=== PATIENT | female | born 1955 | race Two or more races ===

== ENCOUNTER 2021-12-06 13:58 | Outpatient (CLI) | payer OTHER | END 2021-12-06 14:10 | disposition home or self-care (01) | LOC: RAD 13:58 → MAMO-SONO 13:58 | PROVIDERS: ATTEND General Practice | DX: J80 Acute respiratory distress syndrome (principal); R07.9 Chest pain, unspecified; M54.50 Low back pain, unspecified; Z12.31 Encounter for screening mammogram for malignant neoplasm of breast; N64.59 Other signs and symptoms in breast ==

== ENCOUNTER → 2021-12-12 | Outpatient (CLI) | payer OTHER | END | disposition home or self-care (01) | LOC: NUCLEAR 12:13 | PROVIDERS: ATTEND General Practice | DX: M81.0 Age-related osteoporosis without current pathological fracture (principal); Z13.820 Encounter for screening for osteoporosis ==

== ENCOUNTER 2022-06-12 12:52 | Outpatient (CLI) | payer OTHER | END 2022-06-12 12:54 | disposition home or self-care (01) | LOC: SONOGRAMA 12:52 | PROVIDERS: ATTEND General Practice | DX: N64.59 Other signs and symptoms in breast (principal) ==

== ENCOUNTER 2023-02-12 10:30 | Outpatient (CLI) | payer OTHER | END 2023-02-12 10:35 | disposition home or self-care (01) | LOC: SONOGRAMA 10:30 | PROVIDERS: ATTEND General Practice | DX: E04.2 Nontoxic multinodular goiter (principal) ==

== ENCOUNTER 2024-02-06 07:54 | Outpatient (CLI) | payer OTHER | END 2024-02-06 08:07 | disposition home or self-care (01) | LOC: MAMO-SONO 07:54 | PROVIDERS: ATTEND General Practice | DX: N60.99 Unspecified benign mammary dysplasia of unspecified breast (principal); Z12.31 Encounter for screening mammogram for malignant neoplasm of breast; Z12.11 Encounter for screening for malignant neoplasm of colon ==